=== PATIENT | male | born 1970 | race Caucasian/White ===

== ENCOUNTER 2021-04-09 07:37 | Inpatient (IN) | payer OTHER ==
[~2021-04-09] VITALS: Ht 185.4 cm; Wt 96.2 kg
[2021-04-09 07:47] VITALS: BP 112/74
[2021-04-09 08:10] LABS: HEMOGLOBIN 16.1 gm/dL (14.0-18.0); MCH 31.3 pg (26.0-34.0); MCHC 33.5 g/dL (28.0-37.0); MCV 93.2 fL (80.0-100.0); MPV 11.2 fl. (7.2-11.1); NUCLEATED RBCS 0 /100WBC; PLATELET COUNT* 199 thou/uL (150-400); RBC 5.15 mil/uL (4.50-6.00); RDW-CV 13.1 % (10.5-14.5); WBC 13.8 thou/uL (4.0-11.0)
[2021-04-09 08:21] LABS: CALCIUM 8.8 mg/dL (8.5-10.1); POTASSIUM 4.7 mmol/L (3.5-5.1)
[2021-04-09 08:25] LABS: ALBUMIN 4.3 g/dL (3.4-5.0); TOTAL BILIRUBIN 0.5 mg/dL (<0.1-1.0); TOTAL PROTEIN 7.7 g/dL (6.4-8.2)
[2021-04-09 08:47] LABS: ABSOLUTE NEUTROPHILS 12.8 thou/uL (1.6-8.1)
[2021-04-09 08:48] LABS: ABSOLUTE LYMPHOCYTES 0.6 thou/uL (0.8-5.3); ABSOLUTE MONOCYTES 0.4 thou/uL (0.0-1.2); PLATELET ESTIMATE ADEQUATE
[2021-04-09 10:10] LABS: URINE BILIRUBIN NEGATIVE (Negative); URINE BLOOD NEGATIVE (Negative); URINE CLARITY CLEAR; URINE COLOR YELLOW; URINE GLUCOSE-RANDOM NEGATIVE (Negative); URINE KETONES NEGATIVE (Negative); URINE LEUKOCYTES-REFLEX NEGATIVE (Negative); URINE NITRITE-REFLEX NEGATIVE (Negative); URINE PROTEIN NEGATIVE (Negative); URINE SPECIFIC GRAVITY <= 1.005 (1.005-1.030); URINE UROBILINOGEN 0.2 E.U./dl (0.2-1.0)
--- NOTE | 2021-04-09 11:03 | EKG ---
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 : 1970 Requested By: Pierce Jason Order Number: [id number] MD: Samuel Velasquez Measurements Intervals [place] Rate: 45 P: 38 TN: 141 QRS: 56 QRSD: 108 T: 36 QT: 465 QTc: 403 Interpretive Statements Sinus bradycardia No previous ECG available for comparison Electronically Signed On 04-09-2021 11:03:10 CERTIFIED MASTER SAFECRACKER by Samuel Velasquez [email or web address] <ELECTRONICALLY SIGNED> By: Samuel Velasquez MD, [facility] 04/09/21 1103 2 2 Samuel Velasquez MD, [facility] /EPI
[2021-04-09 13:48] VITALS: BP 134/81
[2021-04-09 16:00] VITALS: BP 131/83
[2021-04-09 20:00] VITALS: BP 109/71
[2021-04-10 02:06] VITALS: BP 114/70
[2021-04-10 08:00] VITALS: BP 116/71
[2021-04-10 12:29] LABS: ABSOLUTE BASOPHILS 0.1 thou/uL (0.0-0.2); ABSOLUTE EOSINOPHILS 0.2 thou/uL (0.0-0.7); ABSOLUTE LYMPHOCYTES 1.6 thou/uL (0.8-5.3); ABSOLUTE MONOCYTES 0.5 thou/uL (0.0-1.2); ABSOLUTE NEUTROPHILS 4.7 thou/uL (1.6-8.1); BASOPHILS 1.1 %; EOSINOPHILS 2.2 %; HEMATOCRIT 42.9 % (42.0-52.0); HEMOGLOBIN 14.4 gm/dL (14.0-18.0); LYMPHOCYTES 22.6 %; MCH 31.7 pg (26.0-34.0); MCHC 33.6 g/dL (28.0-37.0); MCV 94.4 fL (80.0-100.0); MONOCYTES 6.9 %; MPV 10.3 fl. (7.2-11.1); NUCLEATED RBCS 0 /100WBC; PLATELET COUNT* 140 thou/uL (150-400); POLYS 67.2 %; RBC 4.55 mil/uL (4.50-6.00); RDW-CV 13.4 % (10.5-14.5); WBC 6.9 thou/uL (4.0-11.0)
[2021-04-10 14:11] VITALS: BP 116/53
[2021-04-10 14:14] VITALS: BP 116/53
[2021-04-10 19:55] VITALS: BP 128/76
[2021-04-11 00:05] VITALS: BP 118/81
[2021-04-11 08:00] VITALS: BP 128/67; BP 130/62
[2021-04-11 17:16] VITALS: BP 140/89
[2021-04-11 21:36] VITALS: BP 130/81
[2021-04-12 00:39] VITALS: BP 114/64; BP 148/61
[2021-04-12 04:48] LABS: HEMATOCRIT 39.8 % (42.0-52.0); HEMOGLOBIN 13.5 gm/dL (14.0-18.0); MCH 31.4 pg (26.0-34.0); MCHC 33.9 g/dL (28.0-37.0); MCV 92.5 fL (80.0-100.0); MPV 10.7 fl. (7.2-11.1); RBC 4.3 mil/uL (4.50-6.00); RDW-CV 12.8 % (10.5-14.5); WBC 5.4 thou/uL (4.0-11.0)
[2021-04-12 05:20] LABS: CREATININE 0.7 mg/dL (0.6-1.3); POTASSIUM 3.9 mmol/L (3.5-5.1)
[2021-04-12 07:52] VITALS: BP 125/77
[2021-04-12 14:48] VITALS: BP 125/77
== END 2021-04-12 15:15 | disposition home or self-care (01) | DRG 390 ==
LOC: M.ERS 07:37 → M.TBA-ER 10:13 → M.2W 13:44
PROVIDERS: Family Medicine; Student in an Organized Health Care Education/Training Program; ADMIT Internal Medicine; ATTEND Internal Medicine
DX: K56.609 Unspecified intestinal obstruction, unspecified as to partial versus complete obstruction (principal); Z20.822 Contact with and (suspected) exposure to COVID-19; E86.0 Dehydration; I10 Essential (primary) hypertension; N28.9 Disorder of kidney and ureter, unspecified

== ENCOUNTER 2021-04-15 05:32 | Inpatient (IN) | payer OTHER ==
[~2021-04-15] VITALS: Ht 185.4 cm; Wt 95.7 kg
[2021-04-15 05:38] VITALS: BP 116/85
[2021-04-15 06:27] LABS: HEMATOCRIT 45.6 % (42.0-52.0); HEMOGLOBIN 15.4 gm/dL (14.0-18.0); MCH 31.6 pg (26.0-34.0); MCHC 33.8 g/dL (28.0-37.0); MCV 93.5 fL (80.0-100.0); MPV 10.8 fl. (7.2-11.1); NUCLEATED RBCS 0 /100WBC; PLATELET COUNT* 131 thou/uL (150-400); RBC 4.88 mil/uL (4.50-6.00); RDW-CV 12.8 % (10.5-14.5)
[2021-04-15 06:39] LABS: CALCIUM 9.1 mg/dL (8.5-10.1); POTASSIUM 3.8 mmol/L (3.5-5.1)
[2021-04-15 06:43] LABS: ALBUMIN 3.9 g/dL (3.4-5.0); TOTAL BILIRUBIN 0.8 mg/dL (<0.1-1.0); TOTAL PROTEIN 6.9 g/dL (6.4-8.2)
[2021-04-15 07:37] LABS: ABSOLUTE EOSINOPHILS 0.1 thou/uL (0.0-0.7); ABSOLUTE LYMPHOCYTES 0.6 thou/uL (0.8-5.3); ABSOLUTE MONOCYTES 0.1 thou/uL (0.0-1.2); ABSOLUTE NEUTROPHILS 6.2 thou/uL (1.6-8.1); PLATELET ESTIMATE DECREASED
[2021-04-15 08:05] LABS: URINE BILIRUBIN NEGATIVE (Negative); URINE BLOOD NEGATIVE (Negative); URINE CLARITY CLEAR; URINE COLOR YELLOW; URINE GLUCOSE-RANDOM NEGATIVE (Negative); URINE KETONES NEGATIVE (Negative); URINE LEUKOCYTES-REFLEX NEGATIVE (Negative); URINE NITRITE-REFLEX NEGATIVE (Negative); URINE PROTEIN NEGATIVE (Negative); URINE SPECIFIC GRAVITY <= 1.005 (1.005-1.030); URINE UROBILINOGEN 0.2 E.U./dl (0.2-1.0)
[2021-04-15 08:13] LABS: AMP/METHAMP Negative (Negative); BARBITURATES Negative (Negative); BENZODIAZEPINES Negative (Negative); COCAINE Negative (Negative); METHADONE Negative (Negative); OPIATES POSITIVE (Negative); PCP Negative (Negative); THC Negative (Negative)
[2021-04-15 10:13] VITALS: BP 96/64
--- NOTE | 2021-04-15 11:04 | EKG ---
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
[2021-04-15 19:29] VITALS: BP 117/66
[2021-04-15 20:00] VITALS: BP 115/70
[2021-04-16 01:00] VITALS: BP 115/71
[2021-04-16 01:12] VITALS: BP 115/71
[2021-04-16 04:34] LABS: HEMOGLOBIN 13.8 gm/dL (14.0-18.0); MCH 31.8 pg (26.0-34.0); MCHC 33.6 g/dL (28.0-37.0); MCV 94.5 fL (80.0-100.0); MPV 10.8 fl. (7.2-11.1); RBC 4.34 mil/uL (4.50-6.00); RDW-CV 13.1 % (10.5-14.5); WBC 3.8 thou/uL (4.0-11.0)
[2021-04-16 04:41] LABS: CALCIUM 8.1 mg/dL (8.5-10.1); CREATININE 0.8 mg/dL (0.6-1.3); POTASSIUM 3.8 mmol/L (3.5-5.1)
[2021-04-16 04:46] LABS: ALBUMIN 3.1 g/dL (3.4-5.0); TOTAL BILIRUBIN 0.4 mg/dL (<0.1-1.0); TOTAL PROTEIN 5.9 g/dL (6.4-8.2)
[2021-04-16 06:01] VITALS: BP 125/73
[2021-04-16 12:00] VITALS: BP 121/71
[2021-04-16 16:00] VITALS: BP 128/73
[2021-04-16 20:00] VITALS: BP 114/68
[2021-04-17 02:05] LABS: HEPATITIS B SURFACE AG Negative (Negative)
[2021-04-17 02:09] VITALS: BP 121/66
[2021-04-17 04:46] LABS: HEMATOCRIT 38.9 % (42.0-52.0); HEMOGLOBIN 13.1 gm/dL (14.0-18.0); MCH 31.4 pg (26.0-34.0); MCHC 33.8 g/dL (28.0-37.0); MCV 93.1 fL (80.0-100.0); MPV 11.4 fl. (7.2-11.1); RBC 4.18 mil/uL (4.50-6.00); RDW-CV 12.5 % (10.5-14.5); WBC 3.5 thou/uL (4.0-11.0)
[2021-04-17 05:27] LABS: ALBUMIN 3.1 g/dL (3.4-5.0); CALCIUM 8.2 mg/dL (8.5-10.1); CREATININE 0.8 mg/dL (0.6-1.3); POTASSIUM 3.6 mmol/L (3.5-5.1); TOTAL BILIRUBIN 0.5 mg/dL (<0.1-1.0)
[2021-04-17 08:00] VITALS: BP 127/70
[2021-04-17 12:00] VITALS: BP 120/75
[2021-04-17 20:00] VITALS: BP 129/80
[2021-04-18 03:55] LABS: HEMATOCRIT 38.9 % (42.0-52.0); HEMOGLOBIN 13.1 gm/dL (14.0-18.0); MCH 31.5 pg (26.0-34.0); MCHC 33.7 g/dL (28.0-37.0); MCV 93.4 fL (80.0-100.0); MPV 11.1 fl. (7.2-11.1); RBC 4.17 mil/uL (4.50-6.00); RDW-CV 12.7 % (10.5-14.5); WBC 3.3 thou/uL (4.0-11.0)
[2021-04-18 04:21] LABS: CALCIUM 8.2 mg/dL (8.5-10.1); CREATININE 0.7 mg/dL (0.6-1.3); POTASSIUM 3.8 mmol/L (3.5-5.1); TOTAL BILIRUBIN 0.3 mg/dL (<0.1-1.0); TOTAL PROTEIN 5.8 g/dL (6.4-8.2)
[2021-04-18 05:00] VITALS: BP 118/78
[2021-04-18 08:00] VITALS: BP 122/82
[2021-04-18 15:20] VITALS: BP 124/81
[2021-04-18 20:20] VITALS: BP 127/94
[2021-04-18 23:54] VITALS: BP 119/89
[2021-04-19 05:21] LABS: HEMATOCRIT 44.2 % (42.0-52.0); HEMOGLOBIN 14.7 gm/dL (14.0-18.0); MCH 31.2 pg (26.0-34.0); MCHC 33.3 g/dL (28.0-37.0); MCV 93.5 fL (80.0-100.0); RBC 4.72 mil/uL (4.50-6.00); RDW-CV 12.4 % (10.5-14.5); WBC 4.5 thou/uL (4.0-11.0)
[2021-04-19 05:46] LABS: CALCIUM 8.5 mg/dL (8.5-10.1); CREATININE 0.7 mg/dL (0.6-1.3); POTASSIUM 3.9 mmol/L (3.5-5.1)
[2021-04-19 08:00] VITALS: BP 118/72
[2021-04-19 20:30] VITALS: BP 106/69
[2021-04-20] VITALS: BP 101/64
[2021-04-20 04:00] VITALS: BP 113/60
[2021-04-20 04:12] LABS: HEMATOCRIT 43.5 % (42.0-52.0); HEMOGLOBIN 14.7 gm/dL (14.0-18.0); MCH 31.2 pg (26.0-34.0); MCHC 33.8 g/dL (28.0-37.0); MCV 92.3 fL (80.0-100.0); MPV 11.5 fl. (7.2-11.1); RBC 4.71 mil/uL (4.50-6.00); RDW-CV 12.8 % (10.5-14.5)
[2021-04-20 04:47] LABS: CALCIUM 7.9 mg/dL (8.5-10.1); CREATININE 0.8 mg/dL (0.6-1.3); MAGNESIUM 1.6 mg/dL (1.8-2.4); TOTAL BILIRUBIN 0.7 mg/dL (<0.1-1.0); TOTAL PROTEIN 5.8 g/dL (6.4-8.2)
[2021-04-20 08:05] VITALS: BP 110/68
[2021-04-20 16:00] VITALS: BP 129/79
[2021-04-20 19:45] VITALS: BP 126/80
[2021-04-21 00:10] VITALS: BP 127/84
[2021-04-21 04:18] LABS: HEMATOCRIT 40.9 % (42.0-52.0); HEMOGLOBIN 13.7 gm/dL (14.0-18.0); MCH 31.1 pg (26.0-34.0); MCHC 33.6 g/dL (28.0-37.0); MCV 92.6 fL (80.0-100.0); MPV 10.1 fl. (7.2-11.1); RBC 4.41 mil/uL (4.50-6.00); RDW-CV 12.8 % (10.5-14.5); WBC 8.7 thou/uL (4.0-11.0)
[2021-04-21 04:34] LABS: CALCIUM 8.2 mg/dL (8.5-10.1); CREATININE 0.8 mg/dL (0.6-1.3); POTASSIUM 4.1 mmol/L (3.5-5.1)
[2021-04-21 08:10] VITALS: BP 102/72
[2021-04-21 15:54] VITALS: BP 132/79
[2021-04-21 20:00] VITALS: BP 122/82
--- NOTE | 2021-04-21 23:23 | OP ---
[address] [address] OPERATIVE REPORT Name: MARINA WADE Room: [address] IN .R.#: [id number] Admission: 04/15/21 Attend Phys: Nano Delgadillo MD Discharge: Date of : 66 Report #: [id number] THIS REPORT FOR: cc: FAM - No family physician/PCP FAM - No family physician/PCP Demetrius Maradiaga III DO ~ DATE OF SURGERY: 04/19/2021 PREOPERATIVE DIAGNOSIS: Small-bowel obstruction. POSTOPERATIVE DIAGNOSES: Small-bowel obstruction, intraabdominal adhesions and sigmoid mass. SURGEON: Demetrius Maradiaga DO SPRAY TECHNICIAN: Rick Barber, PGY-1 and Shay Oseguera, MS3. OPERATION PERFORMED: Diagnostic laparoscopy converted to exploratory laparotomy, lysis of adhesions for 4 hours. Release of small-bowel obstruction. ANESTHESIA: General, local and TAP block. ESTIMATED BLOOD LOSS: 100 mL ESTIMATED BLOOD LOSS: None. COMPLICATIONS: None. FINDINGS: Extensive intraabdominal adhesions throughout the abdomen from the epigastrium to the deep pelvis. Adhesions involved small bowel to small bowel, small bowel to mesentery and small bowel to colon. Additional finding of a focal area of nodular thickening in the sigmoid colon concerning for possible mass. INDICATIONS: The patient is a 51-year-old male that presented to the Emergency Department with increasing abdominal distention, pain and nausea. He had been recently admitted for a partial small-bowel obstruction, was treated nonoperatively and was discharged home. He presented only a few days after discharge with recurrence of symptoms. He was treated nonoperatively and did not have improvement of his symptoms. Therefore, he was informed of the risks and benefits of diagnostic laparoscopy with possible exploratory laparotomy and possible bowel resection with risks including, but not limited to bleeding, infection, bowel injury, bladder injury. He understood these risks and decided to proceed with surgery. DESCRIPTION OF PROCEDURE: After informed consent was obtained, [place] [address] OPERATIVE REPORT Name: MARINA WADE John Room: [address] IN [facility]#: [id number] Admission: 04/15/21 Attend Phys: Nano Delgadillo MD Discharge: Date of : 66 Report #: [id number] brought to the operating room and placed in supine position. SCDs were on and running. Preoperative antibiotics were given. General anesthesia was administered with an ET tube. Bilateral TAP blocks were placed by anesthesia. The patient was prepped and draped in the usual sterile fashion. A surgical pause was held to confirm proper patient and procedure. We began with a 1 cm incision in the left upper quadrant at Aldrich's point using an 11 blade. A Gamar 0-degree 5 mm scope was used to attempt optiview entry. We were unable to achieve pneumoperitoneum despite entering the abdomen. There was no insufflation of the abdomen. The pressures were high. Because this was unsuccessful, we similarly attempted this in the right upper quadrant with another 1 cm incision using Optiview technique in the right upper quadrant. We were again unable to insufflate the abdomen. This was removed. I extended the left upper quadrant incision slightly and using S retractors found the fascial defect and the peritoneal defect without the obturator. I inserted the 5 mm trocar through the peritoneal defect and attempted to view in the abdomen due to adhesive disease. There was no success with insufflating the abdomen and achieving meaningful intraperitoneal access. Therefore, we decided to convert to open. Using a 10 blade, we made a midline incision at the site of his previous laparotomy. Dissection was carried through subcutaneous fat using cautery. Fascia was identified. There was some old suture material, which was divided using cautery. The fascia was elevated with 2 Kochers. The fascia was scored. A finger was introduced deep to the fascia and the remainder of the fascia was opened using cautery. The peritoneum was bluntly entered using finger dissection. Initially, the incision was about 10 cm, but we ended up requiring opening the full length of his previous laparotomy to a total length of about 20 cm. Once we were in the abdomen, it was apparent that he had extensive adhesive disease involving the entirety of his small bowel and colon. We then proceeded to carefully lyse adhesions for a total of 4 hours. There were adhesions from small bowel loops to small bowel. Much of the small bowel was adhesed to the mesentery of other loops of small bowel and there were several loops densely adherent in the pelvis. We slowly worked our way from the visible portion of the bowel until we reached the ligament of Treitz and then carefully traced our way until we are able to successfully reach the terminal ileum and cecum. We were able to visualize the cecum, the ascending colon and much of the transverse colon. The splenic flexure was not visualized. The sigmoid colon was well visualized. There was a palpable abnormality within the sigmoid colon consistent with a possible mass. This was left in situ and was not biopsied. I was unable to milk this mass either proximally or distally within the bowel as we would expect with a stool ball. There were some small bowel loops that were adherent to this area of concern; however, these were no dense or inflammatory than any other adhesion in the abdomen. All adhesions were carefully lysed using Metzenbaum scissors. Some thicker omental adhesions were divided carefully using cautery. There were some small defects in the mesentery of the terminal ileum. The terminal ileum did not appear ischemic or compromised in its perfusion; however, to prevent herniation through these [facility] [address] [place] [address] OPERATIVE REPORT Name: MARINA WADE Room: [address] IN M.R.#: [id number] Admission: 04/15/21 Attend Phys: Nano Delgadillo MD Discharge: Date of : 66 Report #: [id number] defects, they were closed using 3-0 Vicryl interrupted sutures. Once this was complete and we were satisfied with the patency of the small bowel, we irrigated the abdomen. There were some loops of small bowel, which were still matted together, but were not obstructed and were normal caliber before in the midst after this area of concern. So these were not lysed to avoid risking enterotomy. There were no enterotomies. There were no serosal tears identified. Once we had successfully irrigated the abdomen, a piece of Seprafilm was placed over the small bowel as there was no omentum. We closed the abdomen using looped 0 PDS from the top and from the bottom and tying the suture in the middle. The incision was then closed in layered fashion using 3-0 Vicryl and renata. The laparoscopy sites were closed using renata. Wounds were cleansed and irrigated. A Prevena 20 cm wound VAC was applied to the midline incision. All counts were correct. The patient was emerged from anesthesia and transferred to the PACU in stable condition. <ELECTRONICALLY SIGNED> By: Demetrius Maradiaga III, 04/21/21 2323 1822 [id number] Maradiaga III, DO /nt
[2021-04-22 04:23] LABS: HEMATOCRIT 39.4 % (42.0-52.0); HEMOGLOBIN 13.4 gm/dL (14.0-18.0); MCH 31.6 pg (26.0-34.0); MCHC 34.1 g/dL (28.0-37.0); MCV 92.7 fL (80.0-100.0); MPV 10.9 fl. (7.2-11.1); RBC 4.25 mil/uL (4.50-6.00); RDW-CV 12.8 % (10.5-14.5)
[2021-04-22 04:53] LABS: ALBUMIN 2.9 g/dL (3.4-5.0); CALCIUM 8.3 mg/dL (8.5-10.1); CREATININE 0.7 mg/dL (0.6-1.3); POTASSIUM 3.9 mmol/L (3.5-5.1); TOTAL BILIRUBIN 0.7 mg/dL (<0.1-1.0); TOTAL PROTEIN 6.2 g/dL (6.4-8.2)
[2021-04-22 09:00] VITALS: BP 125/76
[2021-04-22 15:42] VITALS: BP 121/82
[2021-04-23 00:14] VITALS: BP 116/79
[2021-04-23 08:00] VITALS: BP 136/88
[2021-04-23 13:15] VITALS: BP 123/87
[2021-04-23 17:20] VITALS: BP 122/79
[2021-04-23 19:38] LABS: PHOSPHORUS* 3.6 mg/dL (2.5-4.9)
[2021-04-23 20:17] VITALS: BP 133/78
[2021-04-24] VITALS: BP 114/78
[2021-04-24 04:52] LABS: ABSOLUTE BASOPHILS 0.1 thou/uL (0.0-0.2); ABSOLUTE EOSINOPHILS 0.3 thou/uL (0.0-0.7); ABSOLUTE LYMPHOCYTES 1.1 thou/uL (0.8-5.3); ABSOLUTE MONOCYTES 0.6 thou/uL (0.0-1.2); ABSOLUTE NEUTROPHILS 4.9 thou/uL (1.6-8.1); EOSINOPHILS 4.2 %; HEMATOCRIT 36.3 % (42.0-52.0); HEMOGLOBIN 12.2 gm/dL (14.0-18.0); LYMPHOCYTES 15.3 %; MCH 31.1 pg (26.0-34.0); MCHC 33.8 g/dL (28.0-37.0); MCV 92.2 fL (80.0-100.0); MONOCYTES 8.5 %; MPV 10.5 fl. (7.2-11.1); NUCLEATED RBCS 0 /100WBC; PLATELET COUNT* 177 thou/uL (150-400); RBC 3.93 mil/uL (4.50-6.00); RDW-CV 12.6 % (10.5-14.5); WBC 6.9 thou/uL (4.0-11.0)
[2021-04-24 05:12] LABS: ALBUMIN 2.8 g/dL (3.4-5.0); CALCIUM 8.3 mg/dL (8.5-10.1); CREATININE 0.7 mg/dL (0.6-1.3); POTASSIUM 3.9 mmol/L (3.5-5.1); TOTAL BILIRUBIN 0.6 mg/dL (<0.1-1.0); TOTAL PROTEIN 6.1 g/dL (6.4-8.2)
[2021-04-24 08:00] VITALS: BP 125/78
[2021-04-24 15:58] VITALS: BP 122/80
[2021-04-24 20:22] VITALS: BP 119/77
[2021-04-24 23:59] VITALS: BP 151/83
[2021-04-25 06:15] LABS: ABSOLUTE EOSINOPHILS 0.2 thou/uL (0.0-0.7); ABSOLUTE LYMPHOCYTES 0.5 thou/uL (0.8-5.3); ABSOLUTE MONOCYTES 0.5 thou/uL (0.0-1.2); ABSOLUTE NEUTROPHILS 5.9 thou/uL (1.6-8.1); BASOPHILS 0.6 %; EOSINOPHILS 3.2 %; HEMATOCRIT 37.1 % (42.0-52.0); HEMOGLOBIN 12.1 gm/dL (14.0-18.0); LYMPHOCYTES 6.8 %; MCH 30.9 pg (26.0-34.0); MCHC 32.8 g/dL (28.0-37.0); MCV 94.3 fL (80.0-100.0); MONOCYTES 6.7 %; MPV 10.8 fl. (7.2-11.1); NUCLEATED RBCS 0 /100WBC; PLATELET COUNT* 176 thou/uL (150-400); POLYS 82.7 %; RBC 3.93 mil/uL (4.50-6.00); RDW-CV 12.5 % (10.5-14.5); WBC 7.1 thou/uL (4.0-11.0)
[2021-04-25 06:24] LABS: ALBUMIN 2.7 g/dL (3.4-5.0); CALCIUM 8.5 mg/dL (8.5-10.1); CREATININE 0.6 mg/dL (0.6-1.3); POTASSIUM 5.9 mmol/L (3.5-5.1); TOTAL BILIRUBIN 0.7 mg/dL (<0.1-1.0); TOTAL PROTEIN 5.9 g/dL (6.4-8.2)
[2021-04-25 08:00] VITALS: BP 115/75
[2021-04-25 09:08] LABS: ABSOLUTE BASOPHILS 0.1 thou/uL (0.0-0.2); ABSOLUTE EOSINOPHILS 0.2 thou/uL (0.0-0.7); ABSOLUTE LYMPHOCYTES 0.7 thou/uL (0.8-5.3); ABSOLUTE MONOCYTES 0.4 thou/uL (0.0-1.2); ABSOLUTE NEUTROPHILS 5.4 thou/uL (1.6-8.1); EOSINOPHILS 3.3 %; HEMATOCRIT 38.7 % (42.0-52.0); HEMOGLOBIN 12.9 gm/dL (14.0-18.0); LYMPHOCYTES 10.2 %; MCH 30.9 pg (26.0-34.0); MCHC 33.2 g/dL (28.0-37.0); MCV 92.9 fL (80.0-100.0); MONOCYTES 6.4 %; MPV 10.5 fl. (7.2-11.1); NUCLEATED RBCS 0 /100WBC; PLATELET COUNT* 190 thou/uL (150-400); POLYS 79.1 %; RBC 4.16 mil/uL (4.50-6.00); RDW-CV 12.6 % (10.5-14.5); WBC 6.8 thou/uL (4.0-11.0)
[2021-04-25 09:17] LABS: CALCIUM 8.5 mg/dL (8.5-10.1); CREATININE 0.7 mg/dL (0.6-1.3)
[2021-04-25 09:19] LABS: POTASSIUM 4.2 mmol/L (3.5-5.1)
[2021-04-25 13:41] VITALS: BP 114/70
[2021-04-25 18:34] VITALS: BP 148/79
[2021-04-25 20:24] VITALS: BP 113/74
== END 2021-04-26 | disposition home or self-care (01) | DRG 335 ==
LOC: M.ERS 05:32 → M.TBA-ER 08:29 → M.2W 10:40 → M.ORTHSURG 04-19 20:10 → M.2W 04-22 20:06
PROVIDERS: Internal Medicine; Internal Medicine Gastroenterology; Personal Emergency Response Attendant; Student in an Organized Health Care Education/Training Program; Surgery; ADMIT Internal Medicine; ATTEND Internal Medicine
DX: K56.600 Partial intestinal obstruction, unspecified as to cause (principal); E43 Unspecified severe protein-calorie malnutrition; Z90.49 Acquired absence of other specified parts of digestive tract; K56.7 Ileus, unspecified; Z20.822 Contact with and (suspected) exposure to COVID-19; D64.9 Anemia, unspecified; K57.30 Diverticulosis of large intestine without perforation or abscess without bleeding